=== PATIENT | female | born 1995 | race Caucasian/White ===

== ENCOUNTER 2017-06-12 16:41 | Emergency (ER) | payer OTHER ==
[2017-06-12 16:52] VITALS: BMI 21.2
[2017-06-12] MEDS ORDERED: SODIUM CHLORIDE 0.9% 1000 ML INFUS.BAG IV ONE (18:15)
[2017-06-12] MEDS ORDERED: ONDANSETRON 4 MG/2 ML VIAL IVPUSH ONE (18:16)
--- NOTE | 2017-06-12 18:17 | PDOC ---
History of Present Illness - General Chief Complaint: Pain Stated Complaint: STOMACH PAIN Time Seen by Provider: 06/12/17 17:05 - History of Present Illness Initial Comments: 22 year old previously healthy female presenting with nausea, vomiting, diarrhea, menstrual cramps, and vaginal bleeding for the past two days. States that she began top feel nauseous yesterday with some diarrhea then began to vomit. NBNB vomiting with NB diarrhea. Also states that she has irregular menstrual cycles and is currently having one but with slightly heavier than normal bleeding. Denies fevers, chills, chest pain, cough, or other sick symptoms. 06/12/17 18:16 Past History - Past Medical History Allergies/Adverse Reactions: Allergies Allergy/AdvReac Type Severity Reaction Status Date / Time No Known Allergies Allergy Verified 06/12/17 16:52 Home Medications: Ambulatory Orders NK [No Known Home Medication] 07/05/16 COPD: No Other medical history: NONE - Suicide/Smoking/Psychosocial Hx Smoking History: Never smoked Hx Alcohol Use: No Drug/Substance Use Hx: No Review of Systems - Review of Systems Constitutional: No: Chills, Diaphoresis, Fever HEENTM: No: Recent change in vision, Double Vision Respiratory: No: Cough, Shortness of Breath Cardiac (ROS): No: Lightheadedness, Palpitations ABD/GI: No: Diarrhea, Nausea, Vomiting : No: Burning, Dysuria, Discharge *Physical Exam - Vital Signs Last Vital Signs Temp Pulse Resp BP Pulse Ox 98.0 F 82 20 120/73 99 06/12/17 16:49 06/12/17 16:49 06/12/17 16:49 06/12/17 16:49 06/12/17 16:49 ED Treatment Course - LABORATORY CBC & Chemistry Diagram: 06/12/17 18:30 06/12/17 18:30 *DC/Admit/Observation/Transfer Diagnosis at time of Disposition: Abdominal pain - Discharge Dispostion Disposition: HOME Condition at time of disposition: Improved Admit: No - Referrals Referrals: Clive Montalvo MD [Primary Care Provider] - - Patient Instructions Printed Discharge Instructions: DI for Acute Abdomen Additional Instructions: You were seen for abdominal pain. This may be a viral infection while you are having your period. Please use Tylenol or Motrin for the pain. Please folow up with your primary care. Please return if you have fevers, chills, nausea vomiting or new symptoms. - Post Discharge Activity
[2017-06-12] MEDS ORDERED: ONDANSETRON 4 MG/2 ML VIAL ONE (18:25)
[2017-06-12 18:43] LABS: BASOPHIL 0.3 % (0-2.0); EOSINOPHIL 0.1 % (0-4.5); MCH 29.8 pg (25.7-33.7); MEAN CELL VOLUME 87.6 fl (80-96); MEAN PLT VOLUME 8.6 fl (7.5-11.1); NEUTROPHILS 90.2 % (42.8-82.8); PLATELET COUNT 231 K/MM3 (134-434); RDW 12.6 % (11.6-15.6); WHITE BLOOD COUNT 10.5 K/mm3 (4.0-10.0)
[2017-06-12 18:49] LABS: URINE APPEARANCE SLCLOUDY; URINE BILIRUBIN NEGATIVE (NEGATIVE); URINE BLOOD 3+ (NEGATIVE); URINE COLOR YELLOW; URINE GLUCOSE (UA) NEGATIVE (NEGATIVE); URINE KETONE 2+ (NEGATIVE); URINE NITRITE NEGATIVE (NEGATIVE); URINE UROBILINOGEN NEGATIVE mg/dL (0.2-1.0)
[2017-06-12 18:52] LABS: URINE PROTEIN 1+ (NEGATIVE)
[2017-06-12 19:08] LABS: URINE BACTERIA FEW /hpf (NONE SEEN); URINE MUCUS MANY; URINE RBC 3 /hpf (0-3); URINE WBC 4 /hpf (3-5)
[2017-06-12 19:14] LABS: ALBUMIN 3.8 g/dl (3.4-5.0); ALK PHOS 70 U/L (45-117); ANION GAP 9 (8-16); BILIRUBIN,TOTAL 0.3 mg/dL (0.2-1.0); CALCIUM 8.3 mg/dL (8.5-10.1); CO2 23 mmol/L (21-32); CREATININE 0.6 mg/dL (0.55-1.02); GLUCOSE,RANDOM 92 mg/dL (74-106); SGOT/AST 21 U/L (15-37); SGPT/ALT 30 U/L (12-78); TOT PROT 7.3 g/dl (6.4-8.2)
[2017-06-12] MEDS ORDERED: FAMOTIDINE IV 20 MG/12 ML VIAL IVPB ONE (19:44)
[2017-06-12] MEDS ORDERED: MAG HYDROX/AL HYDROX/SIMETH 355 ML ORAL.SUSP PO ONE (19:44)
[2017-06-12] MEDS ORDERED: FAMOTIDINE 20 MG/50 ML IVPB 20 MG/50 ML MG IVPB ONE (19:50)
[2017-06-12] MEDS ORDERED: MAG HYDROX/AL HYDROX/SIMETH 30 ML UNIT-DOSE CUP ONE (19:50)
[2017-06-12] MEDS ORDERED: LIDOCAINE VISCOUS 2% ORAL/TOP 20 ML UNIT-DOSE CUP MM ONE (19:51)
[2017-06-12] MEDS ORDERED: LIDOCAINE VISCOUS 2% ORAL/TOP 20 ML UNIT-DOSE CUP ONE (19:57)
[2017-06-12 20:02] VITALS: BP 118/70; PULSE 80; TEMP 98.1
--- NOTE | 2017-06-12 20:21 | PDOC ---
Attending Attestation - Resident Resident Name: Miriam Shell - ED Attending Attestation I have performed the following: I have examined & evaluated the patient, The case was reviewed & discussed with the resident, I agree w/resident's findings & plan, Exceptions are as noted - HPI HPI: 06/12/17 20:18 22 YO FEMALE PRESENTS WITH 1 DAY WITH nausea, vomiting, diarrhea. Patient also has some cramping. She was on the first day of her menses. - Physicial Exam PE: 06/12/17 20:21 Well-nourished well-developed 22-year-old female in no acute distress. Head normocephalic, atraumatic. Neck supple, no bruits CVS regular rate and rhythm. Lungs clear to auscultation bilaterally Abdomen soft with no guarding or rebound. Extremities no erythema, no cellulitis, no pending. Neuro alert and oriented 3, ambulatory, no gross focal neural deficits. Skin warm and dry. Psych appropriate - Medical Decision Making 06/12/17 20:22 Patient symptoms improved with IV fluids. Discharged home
[2017-06-12 22:35] LABS: URINE LEUK ESTERASE Negative (NEGATIVE)
== END 2017-06-12 20:52 | disposition home or self-care (01) ==
LOC: JER 16:41
PROC: 3E033GC Introduction of Other Therapeutic Substance into Peripheral Vein, Percutaneous Approach (ICD-10-PCS; principal; 2017-06-12)
DX: R10.84 Generalized abdominal pain (principal)
CPT/HCPCS: 36415; 80053; 81003; 81015; 84703; 85025; 99283-25

== ENCOUNTER 2019-08-26 21:46 | Emergency (ER) | payer OTHER ==
[2019-08-26 21:51] VITALS: BMI 26.7
--- NOTE | 2019-08-26 23:16 | PDOC ---
History of Present Illness - General Chief Complaint: Pain Stated Complaint: ABD PAIN Time Seen by Provider: 08/26/19 23:04 History Source: Patient Exam Limitations: No Limitations - History of Present Illness Initial Comments: 08/26/19 23:06 Patient is a 24 year old female with no pmhx c/o lower abd pain x 2 weeks, worsening today. Patient was a pressure like pain 01/17, was intermintent but today has been constant. Symptoms assoc/w nausea, (+) vomiting this morning. LMP 06/21/19 irreg. Her friend told her to come in and get a test. Had vaginal spotting 1.5 weeks ago. States she has only spotted prior to period but period never came. Denies fever, chills, dysuria, back pain. States did a test at home was neg. Reports (+) constipation but last bm was 3 days ago. Patient sexually active without condoms. No h/o STI. PMD: Dr. Baeza PMHX: as above PSOCHX: neg etoh, drug, cig ALL: NKDA GENERAL/CONSTITUTIONAL: [No fever or chills. No weakness. No weight change.] HEAD, EYES, EARS, NOSE AND THROAT: [No change in vision. No ear pain or discharge. No sore throat.] CARDIOVASCULAR: [No chest pain or shortness of breath.] RESPIRATORY: [No cough, wheezing, or hemoptysis.] GASTROINTESTINAL: [(+) nausea, vomiting,(-) diarrhea, (+) constipation. No rectal bleeding.] GENITOURINARY: [No dysuria, frequency, or change in urination.] MUSCULOSKELETAL: [No joint or muscle swelling or pain. No neck or back pain.] SKIN AND BREASTS: [No rash or easy bruising.] NEUROLOGIC: [No headache, vertigo, loss of consciousness, or loss of sensation.] PSYCHIATRIC: [No depression or anxiety.] ENDOCRINE: [No increased thirst. No abnormal weight change.] HEMATOLOGIC/LYMPHATIC: [No anemia, easy bleeding, or history of blood clots.] ALLERGIC/IMMUNOLOGIC: [No hives or skin allergy. No latex allergy.] GENERAL: [The patient is awake, alert, and fully oriented, in mild distress.] HEAD: [Normal with no signs of trauma.] EYES: [Pupils equal, round and reactive to light, extraocular movements intact, sclera anicteric, conjunctiva clear.] ENT: [Ears normal, nares patent, oropharynx clear without exudates. Moist mucous membranes.] NECK: [Normal range of motion, supple without lymphadenopathy, JVD, or masses.] LUNGS: [Breath sounds equal, clear to auscultation bilaterally. No wheezes, and no crackles.] HEART: [Regular rate and rhythm, normal S1 and S2 without murmur, rub.] ABDOMEN: [Soft, (+) tenderness to the lower abd, normoactive bowel sounds. No guarding, no rebound. No masses.] PELVIC: Normal external genitalia, creamy physiological discharge in the vault. Bimanual exam: Marked tenderness bilateral adnexa most on the right, no CMT EXTREMITIES: [Normal range of motion, no edema. No clubbing or cyanosis. No cords, erythema, or tenderness.] NEUROLOGICAL: [Cranial nerves II through XII grossly intact. Normal speech, normal gait.] PSYCH: [Normal mood, normal affect.] SKIN: [Warm, Dry, normal turgor, no rashes or lesions noted.] Past History - Past Medical History Allergies/Adverse Reactions: Allergies Allergy/AdvReac Type Severity Reaction Status Date / Time No Known Allergies Allergy Verified 08/26/19 21:52 Home Medications: Ambulatory Orders NK [No Known Home Medication] 07/05/16 COPD: No - Psycho Social/Smoking Cessation Hx Smoking History: Never smoked Hx Alcohol Use: No Drug/Substance Use Hx: No *Physical Exam - Vital Signs Last Vital Signs Temp Pulse Resp BP Pulse Ox 98.5 F 90 18 134/74 100 08/26/19 21:48 08/26/19 21:48 08/26/19 21:48 08/26/19 21:48 08/26/19 21:48 ED Treatment Course - LABORATORY CBC & Chemistry Diagram: 08/27/19 00:00 08/27/19 00:00 Medical Decision Making - Medical Decision Making 08/26/19 23:06 Patient is a 24 year old female with no pmhx c/o lower abd pain x 2 weeks, worsening today. Patient was a pressure like pain 01/17, was intermintent but today has been constant. Symptoms assoc/w nausea, (+) vomiting this morning. LMP 12/12/19 irreg. Her friend told her to come in and get a test. Had vaginal spotting 1.5 weeks ago. States she has only spotted prior to period but period never came. Denies fever, chills, dysuria, back pain. States did a test at home was neg. Reports (+) constipation but last bm was 3 days ago. Patient sexually active without condoms. No h/o STI. DDX: Pelvic pain, ruptured ovarian, STI Exam consistent with pelvic origin of pain. offered pain meds decline US transvag r/o torsion labs GC chlamydia reassess 08/27/19 01:18 Patient Full Name: JUDSON ABDULLAHI Patient Accession No: [id number] Patient : 1995 Reason for Exam: r/o torsion Referring Physician: Patient Name: BRADLY ROPER THIS IS A PRELIMINARY REPORT FROM [facility] DATE OF SERVICE: 2019-08-27 00:04:10 IMAGES: 40 EXAM: TRANSVAGINAL ULTRASOUND US and pelvic duplex HISTORY: Pelvic pain COMPARISON: None. FINDINGS: Endovaginal pelvic ultrasound:Uterus is anteverted and measures 6.5centimeters in length. The endometrium is 10millimeters in thickness. There are no fibroids. The right ovary measures 4.1centimeters in length, contains a 2.6 cm complex, possibly hemorrhagic, cyst and demonstrates normal flow. Left ovary measures 3.1centimeters in length, appears normal and demonstrates normal flow. There is no significant free fluid. Pelvic duplex: There is normal arterial and venous flow in both ovaries. IMPRESSION: 2.6 cm complex, possibly hemorrhagic, right ovarian cyst without torsion or free fluid. THIS DOCUMENT HAS BEEN ELECTRONICALLY SIGNED Peter Kwok MD 08/27/2019 01:09 ROSE Aguirre Please call [facility] [phone] ([phone]) with questions. INTERPRETING RADIOLOGIST: Jack Kwok MD Electronically Signed: Aug 27, 2019 01:10AM ROSE I discussed the physical exam findings, ancillary test results and final diagnoses with the patient. I answered all of the patient's questions. The patient was satisfied with the care received and felt comfortable with the discharge plan and treatment plan. The Patient agrees to follow up with the primary care physician within 24-72 hours. Discharge - Discharge Information Problems reviewed: Yes Clinical Impression/Diagnosis: Ruptured cyst of ovary Condition: Stable Disposition: HOME - Follow up/Referral Referrals: Lucinda Arredondo MD [Staff Physician] - - Patient Discharge Instructions Patient Printed Discharge Instructions: DI for Ovarian Cyst Additional Instructions: Your Discharge Instructions: You must call primary care physician within 24 hours to arrange follow-up. Return to the Emergency Department with any new, persistent or worsening symptoms, for fever, chills, SOB, dizziness or any other concerning changes that may occur. You must follow-up with [facility] for further evaluation and management. You may take some Tylenol and Motrin for your pain. - Post Discharge Activity
[2019-08-26 23:21] LABS: URINE APPEARANCE CLOUDY; URINE BILIRUBIN NEGATIVE (NEGATIVE); URINE COLOR YELLOW; URINE GLUCOSE (UA) NEGATIVE (NEGATIVE); URINE KETONE NEGATIVE (NEGATIVE); URINE LEUK ESTERASE NEGATIVE (NEGATIVE); URINE NITRITE NEGATIVE (NEGATIVE); URINE PROTEIN NEGATIVE (NEGATIVE); URINE UROBILINOGEN 0.2 mg/dL (0.2-1.0)
[2019-08-27 00:25] LABS: BASO % 0.7 % (0-2.0); EOS % 1.4 % (0-4.5); HEMATOCRIT 37.8 % (32.4-45.2); HEMOGLOBIN 12.7 GM/dL (10.7-15.3); LYMPH % 28.4 % (8-40); MCH 29.2 pg (25.7-33.7); MCHC 33.5 g/dl (32.0-36.0); MEAN CELL VOLUME 87.1 fl (80-96); MEAN PLT VOLUME 8.9 fl (7.5-11.1); MONO % 5.6 % (3.8-10.2); NEUT % 63.9 % (42.8-82.8); PLATELET COUNT 267 K/MM3 (134-434); RBC 4.34 M/mm3 (3.60-5.2); RDW 13.5 % (11.6-15.6); WHITE BLOOD COUNT 8.9 K/mm3 (4.0-10.0)
[2019-08-27 00:51] LABS: ALK PHOS 96 U/L (45-117); ANION GAP 4 MMOL/L (8-16); BILIRUBIN,TOTAL 0.2 mg/dL (0.2-1); BLOOD UREA NITROGEN 12.1 mg/dL (7-18); CALCIUM 8.8 mg/dL (8.5-10.1); CHLORIDE 106 mmol/L (98-107); CO2 27 mmol/L (21-32); CREATININE 0.8 mg/dL (0.55-1.3); GLUCOSE,RANDOM 80 mg/dL (74-106); POTASSIUM 3.7 mmol/L (3.5-5.1); SGOT/AST 29 U/L (15-37); SGPT/ALT 42 U/L (13-61); SODIUM 137 mmol/L (136-145)
[2019-08-27 01:39] VITALS: BP 122/70; PULSE 98; TEMP 98.7
== END 2019-08-27 01:40 | disposition home or self-care (01) ==
LOC: JER 21:46 → JERFT 21:46 → JER 08-27 01:40
DX: N83.201 Unspecified ovarian cyst, right side (principal)
CPT/HCPCS: 36415; 76830-TC; 80053; 81003; 84702; 84703; 85025; 87086; 87491; 87591; 99284-25

== ENCOUNTER 2023-11-09 14:40 | Emergency (ER) | payer SELFPAY ==
[2023-11-09 14:45] VITALS: TEMP 97.7; BMI 32.5
[2023-11-09 16:27] LABS: BASO % 0.6 % (0-2.0); EOS % 2.4 % (0-4.5); HEMATOCRIT 39.4 % (32.4-45.2); HEMOGLOBIN 12.7 GM/dL (10.7-15.3); LYMPH % 33.1 % (8-40); MCH 27.9 pg (25.7-33.7); MCHC 32.2 g/dl (32.0-36.0); MEAN CELL VOLUME 86.8 fl (80-96); MEAN PLT VOLUME 7.9 fl (7.5-11.1); MONO % 4.6 % (3.8-10.2); NEUT % 59.3 % (42.8-82.8); PLATELET COUNT 303 10^3/uL (134-434); RBC 4.55 M/mm3 (3.60-5.2); RDW 14.2 % (11.6-15.6); WHITE BLOOD COUNT 7.2 K/mm3 (4.0-10.0)
[2023-11-09 16:48] LABS: ALBUMIN 3.7 g/dl (3.4-5.0); BLOOD UREA NITROGEN 11.6 mg/dL (7-18)
[2023-11-09 16:51] LABS: CREATININE 0.7 mg/dL (0.55-1.3)
[2023-11-09 16:52] LABS: BILIRUBIN,TOTAL 0.2 mg/dL (0.2-1); TOT PROT 7.5 g/dl (6.4-8.2)
[2023-11-09 18:39] VITALS: BP 148/91; PULSE 91; RESP 16
== END 2023-11-09 20:01 | disposition home or self-care (01) ==
LOC: JER 14:40
DX: N93.9 Abnormal uterine and vaginal bleeding, unspecified (principal); N92.0 Excessive and frequent menstruation with regular cycle; R10.30 Lower abdominal pain, unspecified
CPT/HCPCS: 36415; 76830-TC; 80053; 84703; 85025; 99284-25